=== PATIENT | female | born 1985 | race Caucasian/White ===

== ENCOUNTER → 2019-04-05 14:18 | Outpatient (BNVA) | payer BC, SELFPAY | PROVIDERS: Family Provider Family Medicine; PCP Family Medicine; Referring Provider Nurse Practitioner; Visit Provider Nurse Practitioner | DX: J03.90 Acute tonsillitis, unspecified (principal) | CPT/HCPCS: 87081; 87880 ==

== ENCOUNTER → 2020-02-11 16:52 | Outpatient (BNVA) | payer BC, SELFPAY | PROVIDERS: Family Provider Family Medicine; PCP Family Medicine; Visit Provider Nurse Practitioner Family | DX: Z20.828 Contact with and (suspected) exposure to other viral communicable diseases (principal) | CPT/HCPCS: 87635 ==

== ENCOUNTER → 2023-04-23 13:03 | Outpatient (BNVA) | payer BC, SELFPAY | PROVIDERS: Family Provider Family Medicine; PCP Family Medicine; Visit Provider Family Medicine | DX: F41.9 Anxiety disorder, unspecified (principal); R00.0 Tachycardia, unspecified; E03.9 Hypothyroidism, unspecified | CPT/HCPCS: 80053; 84443; 85025 ==

== ENCOUNTER → 2024-07-15 09:18 | Outpatient (BNVA) | payer BC, SELFPAY | PROVIDERS: Family Provider Family Medicine; PCP Family Medicine; Visit Provider Family Medicine | DX: F41.9 Anxiety disorder, unspecified (principal); R60.9 Edema, unspecified; E03.9 Hypothyroidism, unspecified | CPT/HCPCS: 80053; 80061; 82607; 84443; 85025 ==